=== PATIENT | male | born 1990 | race Caucasian/White ===

== ENCOUNTER 2020-09-30 17:59 | Emergency (ER) | payer OTHER, SELFPAY ==
[2020-09-30] VITALS (14 sets, daily range): BP systolic 92–167; BP diastolic 54–124; PULSE 112–140; RESP 14–30; TEMP 36.6–36.7; O2SAT 94–97; BMI 45.0
--- NOTE | 2020-09-30 18:07 | XR_ITS ---
WS: [id number] XR chest 1V portable [id number] REASON FOR EXAM: cp FINDINGS: The heart and mediastinum are within normal limits. No active pulmonary parenchymal or pleural disease is identified. The bony thorax is intact. XR/XR chest 1V portable [id number] IMPRESSION: No acute chest abnormality.
--- NOTE | 2020-09-30 18:07 | ECG_ITS ---
[facility] Test Date: 2020-09-30 Pat Name: Gerhard Fleming Department: Room: Gender: Male Online Program Coordinator: : 1990 Requested By: Yong Cheema Order Number: [id number] Latif MD: Kristie Spangler M.D. Measurements Intervals [place] Rate: 142 P: 46 MI: 142 QRS: 48 QRSD: 104 T: 31 QT: 293 QTc: 451 Interpretive Statements SINUS TACHYCARDIA, POSSIBLE ATRIAL FLUTTER INFERIOR MYOCARDIAL INFARCTION , PROBABLY OLD [40+ ms Q WAVE AND/OR ST/T ABNORMALITY IN II/aVF] No previous ECG available for comparison Electronically Signed On 10-01-2020 23:47:42 CRIME PREVENTION WORKER by Kristie Spangler M.D. [id number]
--- NOTE | 2020-09-30 18:07 | CTR_ITS ---
PROCEDURE INFORMATION: Exam: CT Angiography Chest With Contrast Exam date and time: 09/30/2020 6:15 PM Age: 30 years old Clinical indication: Shortness of breath; Patient HX: C/O lle pain, chest pressure and SOB; Additional info: Cp SOB TECHNIQUE: Imaging protocol: Computed tomographic angiography of the chest with intravenous contrast. 3D rendering (Not supervised by radiologist): MIP and/or 3D reconstructed images were created by the technologist. Radiation optimization: All CT scans at this facility use at least one of these dose optimization techniques: automated exposure control; mA and/or kV adjustment per patient size (includes targeted exams where dose is matched to clinical indication); or iterative reconstruction. Contrast material: OMNI 350; Contrast volume: 81 ml; Contrast route: INTRAVENOUS (IV); COMPARISON: CR (CHEST, ) 09/30/2020 6:11 PM RADIATION DOSE METRICS: Total DLP (mGy-cm): 627.44 FINDINGS: Pulmonary arteries: Multiple pulmonary artery filling defects within the bilateral upper, lower, and right middle lobes. No saddle embolus. Aorta: Unremarkable. No aortic aneurysm. No aortic dissection. Lungs: Clear. No consolidation. Pleural space: Unremarkable. No pneumothorax. No pleural effusion. Heart: 2.9 cm right pericardial cyst. No evidence for right heart strain. Lymph nodes: Unremarkable. No enlarged lymph nodes. Bones/joints: Unremarkable. No acute fracture. Soft tissues: Unremarkable. CT/CT angio chest PE protcl [id number] IMPRESSION: Extensive bilateral pulmonary emboli. Radiation Dose CTDIVOL = (mGy): DLP = 627.44 (mGy-cm)
--- NOTE | 2020-09-30 18:09 | USR_ITS ---
PROCEDURE INFORMATION: Exam: US Duplex Left Lower Extremity Veins, Limited Exam date and time: 09/30/2020 6:33 PM Age: 30 years old Clinical indication: Pain; Other: CT doc pe and tenderness of left calf; Leg, lower; Patient HX: PT states family has clotting disorder. ; Additional info: Swelling pain TECHNIQUE: Imaging protocol: Real-time Duplex ultrasound of the Left Lower Extremity with 2-D woody scale, color Doppler flow and spectral waveform analysis with image documentation. Limited exam focused on the left lower extremity veins. COMPARISON: No relevant prior studies available. FINDINGS: Left deep veins: The common femoral, femoral, proximal profunda femoral and popliteal veins are patent without thrombus. The antegrade blood flow is diffusely decreased with decreased phasicity. Normal compressibility and/or augmentation response. Left superficial veins: Unremarkable. Saphenofemoral junction is patent without thrombus. Soft tissues: Unremarkable. US/[place] [id number] IMPRESSION: 1. No deep vein thrombosis in the left lower extremity. 2. Decreased venous flow in the left lower extremity with decreased phasicity raises the possibility of thrombus in the IVC or pelvic veins, which are not included on this study.
[2020-09-30] MEDS: sodium chloride 0.9% 1,000 ML 999 ML IV (18:24)
[2020-09-30] MEDS: metoprolol tartrate 1 mg/1 mL SDV 5 mL 5 MG IV ×2 (18:24→21:41)
[2020-09-30 18:27] LABS: ABG PCO2 32.8 mmHg (35-45); ABG PH Result 7.45 (7.35-7.45); Arterial Blood Gas Hematocrit 55.2 % (42-52); Blood Gas Allen Test Pos; Blood Gas Sample Type Arterial; PO2 ABG 54.1 mmHg (80.0-100.0)
[2020-09-30 18:28] LABS: Blood Gas Operator Identificat ED; Blood Gas Sample Site Radial, right; Oxygen Device ROOM AIR
--- NOTE | 2020-09-30 18:31 | ED_ITS ---
HPI - Chest Pain General: Chief Complaint: Chest Pain Stated Complaint: CHEST PAIN Time Seen by Provider: 09/30/20 18:07 History of Present Illness: HPI narrative: 30-year-old obese male presents with shortness of breath and chest tightness. He states that this started while he was walking into work. He had not been walking a great distance. He had felt relatively well recently, other than left leg pain and swelling which she had had for quite some time. He was going to make an appointment with the MD tomorrow, to have his leg looked at. He states that his dad had a DVT once, and told him it seemed kind of like the same thing. He complains of no cough, no fever. He is not had this type of pain before. MD complaint: chest pain Pertinent past history: other Onset (ago): minute(s) Timing of current episode: constant Prior episodes: No Onset: during exertion Pain location: substernal, left chest and right chest Pain radiation: none Severity: moderate Quality: tightness Relieving factors: nothing Exacerbating factors: nothing Associated symptoms: Reports diaphoresis, dyspnea, leg edema and palpitations; Deny fever(s) or vomiting Review of Systems Const: Reports: diaphoresis; Denies: fever(s) Eyes: Denies: change in vision or blurry vision ENMT: Denies: odynophagia, swelling of lips/tongue or sinus pain Card: Reports: chest pain, palpitations, edema and swelling of feet/ankles; Denies: irregular heart rhythm, dyspnea on exertion or orthopnea Resp: Reports: dyspnea GI: Denies: vomiting : Denies: difficulty urinating or hematuria Musc: Denies: neck pain, back pain, joint redness or joint warmth Skin/Breast: Denies: rash or erythema Neuro: Reports: dizziness; Denies: headache(s) or vertigo Psych: Denies: anxiety Physical Exam Const: GENERAL APPEARANCE: in distress and ill appearing O RIENTATION/CONSCIOUSNESS: Yes oriented to person, Yes oriented to place and Yes oriented to time HENMT: COMMON NORMALS: normocephalic, external ears normal and Normal external nose present HEAD & SCALP: normocephalic FACE & SINUS: normal facial exam NOSE: Normal external nose present and No nasal discharge present EXTERNAL EAR: Yes external ears normal Eye: COMMON NORMALS: Equal, round and reactive pupils present, EOMs intact bilaterally and conjunctivae normal EYELID: eyelids normal CONJUNCTIVA: Yes conjunctivae normal PUPIL: Yes Equal, round and reactive pupils present Neck/C-Spine: GENERAL: No tracheal deviation Chest: COMMONS NORMALS: normal inspection of the chest CHEST: No tenderness Resp: COMMON NORMALS: clear to auscultation bilaterally EFFORT & INSPECTION: Yes tachypneic, Yes respiratory distress, No retractions, No uses accessory muscles and No tracheal deviation AUSCULTATION: clear to auscultation bilaterally, no rhonchi, no wheezes and diminished lung sounds Cardio: COMMON NORMALS: regular rhythm RATE: tachycardic RHYTHM: regular rhythm HEART SOUNDS: no murmurs PERIPHERAL PULSES: radial pulses present GI: INSPECTION: No abdominal distension AUSCULTATION: No Hyperactive bowel sounds present and No Hypoactive bowel sounds present PALPATION: No Guarding due to palpation present (GI) and No Rigid due to palpation PERCUSSION: no dullness to percussion and no tympanic to percussion Neuro: SENSORIUM/ORIENTATION: Yes oriented to person, Yes oriented to place and Yes oriented to time Psych: COMMON NORMALS: mental status grossly normal Skin: COMMON NORMALS: no rashes or lesions noted GENERAL SKIN EXAM: no rashes or lesions noted Course Consultations: Consultation #1: xiao Vital Signs: Vital signs: Vital Signs Temperature 98.1 F 09/30/20 23:18 Pulse Rate 115 H 09/30/20 23:38 Respiratory Rate 15 09/30/20 23:38 Blood Pressure 92/71 09/30/20 23:38 Pulse Oximetry 94 09/30/20 23:38 MDM - Chest Pain MDM Narrative: Medical decision making narrative: 30-year-old male with significant PE bilaterally. He has quite a bit of clot burden. He has been tachycardic in the 120s. He has been hypertensive. His sats have been good on 2 L of nasal cannula oxygen, greater than 94%, and he feels much better. He has been given Lovenox injection. His D-dimer is quite high. His troponin at 2 hours jumped significantly indicating right heart strain from his PE. Because of this, the question is whether this patient may need interventional treatment, such as percutaneous thrombectomy done by interventional radiology. We have none of those resources available at this facility. We have called multiple other facilities in the state during this pandemic. We have finally found a bed at [facility] in [place] for this patient. Because of the long mileage transfer, we have chosen to fly the patient by air ambulance. His hypertension is being treated. Lab Data: Labs: Lab Results 09/30/20 09/30/20 09/30/20 Range/Units 18:17 18:20 18:20 WBC 11.6 H (4.0-10.0) 10^3/ uL RBC 5.99 H (4.1-5.3) 10^6/u L Hgb 18.3 H (11.7-16.6) g/dL Hct 55.2 H (42.0-52.0) % MCV 92.2 (80-94) fL MCH 30.6 (28.0-34.0) pg MCHC 33.2 (30.0-36.0) g/dL RDW 11.9 L (12.1-15.1) % Plt Count 210 (130-400) 10^3/c mm MPV 10.8 H (7.4-10.4) fL Neut % (Auto) 70.3 % Lymph % (Auto) 19.0 % Citrus % (Auto) 7.2 % Eos % (Auto) 2.4 % Baso % (Auto) 0.7 % Neut # (Auto) 8.14 H (1.8-7.7) 10^3/u L Lymph # (Auto) 2.2 (0.8-4.8) 10^3/u L Citrus # (Auto) 0.8 (0.2-0.9) 10^3/u L Eos # (Auto) 0.3 (0.0-0.8) 10^3/u L Baso # (Auto) 0.1 (0.0-0.1) 10^3/u L Nucleated RBC % (a uto) 0 % Nucleated RBCs # 0.0 /100WBC PT 13.50 (12.1-14.9) SECO NDS INR 1.00 (0.8-1.2) D-Dimer 6.93 H (0-0.59) ug/mIFE U Specimen Type Arterial Sample Site Radial, right ABG pH 7.45 (7.35-7.45) ABG pCO2 32.8 L (35-45) mmHg ABG pO2 54.1 L (80.0-100.0) mmH g ABG HCO3 23.0 (22-26) mmol/L ABG Base Excess 0.0 (-2.0-2.0) mmol/ L Eliud Test Pos Hematocrit 55.2 H (42-52) % O2 Delivery Device Room air FiO2 21.0 % Workday Senior Associate ID Ed Sodium (136-145) mmol/L Potassium (3.5-5.1) mmol/L Chloride (98-107) mmol/L Carbon Dioxide (22-29) mmol/L Anion Gap (5-19) BUN (6-20) mg/dL Creatinine (0.7-1.2) mg/dL GFR Calculation (90-130) mL/min Glucose (65-115) mg/dL Calculated Osmolal ity (285-295) mOsm/k g Lactate (0.5-2.2) mmol/L Calcium (8.5-10.5) mg/dL Ferritin (30-400) ng/mL Total Bilirubin (0.15-1.2) mg/dL AST (0-40) U/L ALT (0-41) U/L Alkaline Phosphata se (40-130) IU/L Lactate Dehydrogen ase (135-225) U/L Creatine Kinase (39-308) U/L Troponin T Baselin e (0-15) ng/L Troponin T 120 Min elia (0-15) ng/L Delta Troponin T (0-10) ABS# C-Reactive Protein (0.0-4.9) mg/L NT-Pro-B Natriuret Pep (0-125) pg/mL Total Protein (6.6-8.7) g/dL Albumin (3.5-5.2) g/dL Globulin (1.3-4.6) g/dL Procalcitonin (0-0.5) ng/mL SARS-CoV-2 Ag (Rap id) (Negative) 09/30/20 09/30/20 09/30/20 Range/Units 18:20 18:20 19:12 WBC (4.0-10.0) 10^3/ uL RBC (4.1-5.3) 10^6/u L Hgb (11.7-16.6) g/dL Hct (42.0-52.0) % MCV (80-94) fL MCH (28.0-34.0) pg MCHC (30.0-36.0) g/dL RDW (12.1-15.1) % Plt Count (130-400) 10^3/c mm MPV (7.4-10.4) fL Neut % (Auto) % Lymph % (Auto) % Citrus % (Auto) % Eos % (Auto) % Baso % (Auto) % Neut # (Auto) (1.8-7.7) 10^3/u L Lymph # (Auto) (0.8-4.8) 10^3/u L Citrus # (Auto) (0.2-0.9) 10^3/u L Eos # (Auto) (0.0-0.8) 10^3/u L Baso # (Auto) (0.0-0.1) 10^3/u L Nucleated RBC % (a uto) % Nucleated RBCs # /100WBC PT (12.1-14.9) SECO NDS INR (0.8-1.2) D-Dimer (0-0.59) ug/mIFE U Specimen Type Sample Site ABG pH (7.35-7.45) ABG pCO2 (35-45) mmHg ABG pO2 (80.0-100.0) mmH g ABG HCO3 (22-26) mmol/L ABG Base Excess (-2.0-2.0) mmol/ L Eliud Test Hematocrit (42-52) % O2 Delivery Device FiO2 % Workday Senior Associate ID Sodium 139 (136-145) mmol/L Potassium 3.8 (3.5-5.1) mmol/L Chloride 99 (98-107) mmol/L Carbon Dioxide 24 (22-29) mmol/L Anion Gap 19.8 H (5-19) BUN 9 (6-20) mg/dL Creatinine 0.9 (0.7-1.2) mg/dL GFR Calculation 99.8 (90-130) mL/min Glucose 100 (65-115) mg/dL Calculated Osmolal ity 287 (285-295) mOsm/k g Lactate 1.5 (0.5-2.2) mmol/L Calcium 9.7 (8.5-10.5) mg/dL Ferritin 278 (30-400) ng/mL Total Bilirubin 0.6 (0.15-1.2) mg/dL AST 22 (0-40) U/L ALT 46 H (0-41) U/L Alkaline Phosphata se 135 H (40-130) IU/L Lactate Dehydrogen ase 259 H (135-225) U/L Creatine Kinase 81 (39-308) U/L Troponin T Baselin e 27 H (0-15) ng/L Troponin T 120 Min elia (0-15) ng/L Delta Troponin T (0-10) ABS# C-Reactive Protein 16.7 H (0.0-4.9) mg/L NT-Pro-B Natriuret Pep 64 (0-125) pg/mL Total Protein 7.7 (6.6-8.7) g/dL Albumin 4.6 (3.5-5.2) g/dL Globulin 3.1 (1.3-4.6) g/dL Procalcitonin 0.06 (0-0.5) ng/mL SARS-CoV-2 Ag (Rap id) (Negative) 09/30/20 09/30/20 Range/Units 20:13 20:24 WBC (4.0-10.0) 10^3/ uL RBC (4.1-5.3) 10^6/u L Hgb (11.7-16.6) g/dL Hct (42.0-52.0) % MCV (80-94) fL MCH (28.0-34.0) pg MCHC (30.0-36.0) g/dL RDW (12.1-15.1) % Plt Count (130-400) 10^3/c mm MPV (7.4-10.4) fL Neut % (Auto) % Lymph % (Auto) % Citrus % (Auto) % Eos % (Auto) % Baso % (Auto) % Neut # (Auto) (1.8-7.7) 10^3/u L Lymph # (Auto) (0.8-4.8) 10^3/u L Citrus # (Auto) (0.2-0.9) 10^3/u L Eos # (Auto) (0.0-0.8) 10^3/u L Baso # (Auto) (0.0-0.1) 10^3/u L Nucleated RBC % (a uto) % Nucleated RBCs # /100WBC PT (12.1-14.9) SECO NDS INR (0.8-1.2) D-Dimer (0-0.59) ug/mIFE U Specimen Type Sample Site ABG pH (7.35-7.45) ABG pCO2 (35-45) mmHg ABG pO2 (80.0-100.0) mmH g ABG HCO3 (22-26) mmol/L ABG Base Excess (-2.0-2.0) mmol/ L Eliud Test Hematocrit (42-52) % O2 Delivery Device FiO2 % Workday Senior Associate ID Sodium (136-145) mmol/L Potassium (3.5-5.1) mmol/L Chloride (98-107) mmol/L Carbon Dioxide (22-29) mmol/L Anion Gap (5-19) BUN (6-20) mg/dL Creatinine (0.7-1.2) mg/dL GFR Calculation (90-130) mL/min Glucose (65-115) mg/dL Calculated Osmolal ity (285-295) mOsm/k g Lactate (0.5-2.2) mmol/L Calcium (8.5-10.5) mg/dL Ferritin (30-400) ng/mL Total Bilirubin (0.15-1.2) mg/dL AST (0-40) U/L ALT (0-41) U/L Alkaline Phosphata se (40-130) IU/L Lactate Dehydrogen ase (135-225) U/L Creatine Kinase (39-308) U/L Troponin T Baselin e (0-15) ng/L Troponin T 120 Min elia 85.73 H (0-15) ng/L Delta Troponin T 58.73 H* (0-10) ABS# C-Reactive Protein (0.0-4.9) mg/L NT-Pro-B Natriuret Pep (0-125) pg/mL Total Protein (6.6-8.7) g/dL Albumin (3.5-5.2) g/dL Globulin (1.3-4.6) g/dL Procalcitonin (0-0.5) ng/mL SARS-CoV-2 Ag (Rap id) Negative (Negative) Discharge Plan Discharge Patient Disposition: Xfer Other Clinical Impression: Pulmonary air embolism Qualifiers: Encounter type: initial encounter Qualified Code(s): T79.0XXA - Air embolism (traumatic), initial encounter Condition: Stable Discharge Date/Time: 09/30/20 23:57 Coding Level of Care Code ED Training And Development Officer for Danilo Chicas Exam Comprehensive
[2020-09-30] MEDS: iohexol 350 mg/mL 100 mL Btl IV (18:37)
--- NOTE | 2020-09-30 18:37 | PC.NURSE ---
Patient back from CT
[2020-09-30 18:44] LABS: Basophils # 0.1 10^3/uL (0.0-0.1); Basophils % 0.7 %; Eosinophils # 0.3 10^3/uL (0.0-0.8); Eosinophils % 2.4 %; Hematocrit 55.2 % (42.0-52.0); Hemoglobin 18.3 g/dL (11.7-16.6); Lymphocytes # 2.2 10^3/uL (0.8-4.8); Mean Corpuscular HGB Conc 33.2 g/dL (30.0-36.0); Mean Corpuscular Hemoglobin 30.6 pg (28.0-34.0); Mean Corpuscular Volume 92.2 fL (80-94); Mean Platelet Volume 10.8 fL (7.4-10.4); Monocytes # 0.8 10^3/uL (0.2-0.9); Monocytes % 7.2 %; Neutrophils # 8.14 10^3/uL (1.8-7.7); Neutrophils % 70.3 %; Nucleated Red Blood Cells % 0 %; Platelet Count 210 10^3/cmm (130-400); Red Blood Count 5.99 10^6/uL (4.1-5.3); Red Cell Distribution Width 11.9 % (12.1-15.1); White Blood Count 11.6 10^3/uL (4.0-10.0)
[2020-09-30 19:09] LABS: Troponin(5th) Baseline 27 ng/L (0-15)
[2020-09-30 19:17] LABS: NT Pro B Type Natriuretic Pept 64 pg/mL (0-125); Procalcitonin 0.06 ng/mL (0-0.5)
[2020-09-30 19:28] LABS: Alanine Aminotransferase 46 U/L (0-41); Albumin Level 4.6 g/dL (3.5-5.2); Alkaline Phosphatase 135 IU/L (40-130); Anion Gap 19.8 (5-19); Aspartate Amino Transferase 22 U/L (0-40); Blood Urea Nitrogen 9 mg/dL (6-20); C Reactive Protein 16.7 mg/L (0.0-4.9); Calcium 9.7 mg/dL (8.5-10.5); Carbon Dioxide 24 mmol/L (22-29); Chloride 99 mmol/L (98-107); Creatine Phosphokinase 81 U/L (39-308); Ferritin 278 ng/mL (30-400); Globulin 3.1 g/dL (1.3-4.6); Glomerular Filtration Rate 99.8 mL/min (90-130); Glucose 100 mg/dL (65-115); Lactate Dehydrogenase 259 U/L (135-225); Osmolality Calculated 287 mOsm/kg (285-295); Potassium 3.8 mmol/L (3.5-5.1); Sodium 139 mmol/L (136-145); Total Bilirubin 0.6 mg/dL (0.15-1.2); Total Protein 7.7 g/dL (6.6-8.7)
[2020-09-30 19:33] LABS: D Dimer 6.93 ug/mIFEU (0-0.59)
[2020-09-30 19:36] LABS: Lactate (Lactic Acid level) 1.5 mmol/L (0.5-2.2)
--- NOTE | 2020-09-30 20:07 | ECG_ITS ---
[facility] Test Date: 2020-09-30 Pat Name: Gerhard Fleming Department: Room: Gender: Male Yarn Spinner: : 1990 Requested By: Yong Cheema Order Number: [id number] Bhavya MD: Kristie Spangler M.D. Measurements Intervals [place] Rate: 119 P: 37 ID: [id number] QRS: 40 QRSD: 100 T: 25 QT: 319 QTc: 449 Interpretive Statements SINUS TACHYCARDIA POSSIBLE ANTERIOR MYOCARDIAL INFARCTION [30 ms Q WAVE IN V3/V4, OR R < 0.2 mV IN V4], PROBABLY OLD Compared to ECG 09/30/2020 18:06:08 No significant changes Electronically Signed On 10-01-2020 18:55:38 LOOPING INSPECTOR by Kristie Spangler M.D. [id number] f
[2020-09-30 20:48] LABS: Troponin 5 2HR 85.73 ng/L (0-15)
[2020-09-30 20:51] LABS: Troponin 5 2HR Delta 58.73 ABS# (0-10)
[2020-09-30 20:51] LABS: SARS Covid-2 Antigen Negative (Negative)
[2020-09-30] MEDS: nitroglycerin 1 gm/inch oint Pkt 1.5 INCH TOPICAL (21:42)
[2020-09-30] MEDS: enoxaparin 120 mg/0.8 mL Syringe SUBCUT (21:49)
[2020-09-30] MEDS: enalaprilat 1.25 mg/mL Inj IVP (23:25)
[2020-09-30] MEDS: amlodipine 10 mg Tablet PO (23:25)
[2020-09-30] MEDS: labetalol 5 mg/mL SDV 20mL 20 MG IVP (23:29)
--- NOTE | 2020-09-30 23:37 | PC.NURSE ---
1.5 inch nitro removed from right leg prior to [facility]9 leaving with patient; BP noted to be 92/71. [facility] crew here and report given; care turned over at this time.
== END 2020-09-30 23:57 | disposition other institution (70) ==
PROVIDERS: Emergency Provider Emergency Medicine
DX: T79.0XXA Air embolism (traumatic), initial encounter (principal); X58.XXXA Exposure to other specified factors, initial encounter
CPT/HCPCS: 12345; 36600; 71045; 71275; 80053; 82550; 82728; 82803; 83605; 83615; 83880; 84145; 84484; 85025; 85378; 85610; 86140; 87426; 93005; 93971; 96361; 96372; 96374; 96375; 96376; 99283; 99285; J1650; J3490; J7030; Q9967

== ENCOUNTER 2021-01-30 08:28 | Inpatient (IN) | payer OTHER, SELFPAY ==
[2021-01-30] VITALS (26 sets, daily range): BP systolic 111–181; BP diastolic 82–127; PULSE 70–134; RESP 12–110; TEMP 36.1–37.1; O2SAT 91–100; BMI 43.7
--- NOTE | 2021-01-30 | SCC_ITS ---
Procedure Done: Closed reduction percutaneous pinning 89.1 seconds of fluoroscopic guidance, for a cumulative dose of 38.12 mGy, was provided to Dr. Juarez by the radiology department. C-arm images of the LEFT hip were saved for the patient's permanent record. [facility]
--- NOTE | 2021-01-30 08:35 | XR_ITS ---
NOTE: Report was unsigned for reason: Order was edited. Original Signature date and time was: 01/30/21 @ 0932 WS: [id number] Left rib detail, 3 views, 01/30/2021 Clinical Data: fall pain Comparison: None. Findings: No left pneumothorax is seen. The ribs are intact. No rib fractures seen. No subcutaneous emphysema is present. The left scapula and clavicle appear intact. [facility] 3[facility] w CXR1V [id number] Impression: Negative left rib detail.
--- NOTE | 2021-01-30 08:35 | XR_ITS ---
WS: [id number] Left hip, 2 views, 01/30/2021 Clinical Data: fall/pain Comparison: None. Findings: There is a combination fracture of the left femoral neck and intertrochanteric region. The femoral he ad remains within the acetabulum. The adjacent left pelvis is unremarkable. XR/XR hip LT 2-3V wo/w pel* [id number] Impression: Fracture of the left femoral neck and intertrochanteric region.
--- NOTE | 2021-01-30 08:37 | ED_ITS ---
HPI - Fall General: Chief Complaint: Extremity Injury, Lower Stated Complaint: SLIPPED FALL, L HIP PAIN Time Seen by Provider: 01/30/21 08:29 History of Present Illness: HPI Narrative: 30-year-old male arrives he ER via EMS with complaint of left hip pain and left lower rib pain. He slipped and fell on some tile landing on his left side. He did not hit his head there was no loss of consciousness. Patient has a history of DVTs and is currently taking Eliquis. He denies any other injuries. He was given fentanyl in route with moderate relief of pain however was difficult to transfer the patient due to complaint of pain particularly in the left hip. Denies any other injuries or recent illnesses. complaint: fall Onset (ago): minute(s) Fall from: standing Prolonged down time: no Symptoms prior to fall: none Context: tripped/slipped Location of injury: chest (Left lower ribs) and pelvis (Left hip) Severity: severe Quality: sharp Associated symptoms-after fall: Reports chest pain (Chest wall pain) and difficulty walking; Denies abdominal pain, confusion, headache(s), hematuria, lightheadedness, neck pain, numbness, short of breath, vertigo or weakness Review of Systems Const: Denies: fever(s), chills, body aches, change in appetite, fatigue or malaise ENMT: Denies: throat pain, ear or mastoid pain, nasal discharge or nasal congestion Card: Reports: chest pain (Chest wall pain); Denies: lightheadedness Resp: Denies: dyspnea, productive cough or non-productive cough GI: Denies: abdominal pain : Denies: hematuria Musc: Denies: neck pain Skin/Breast: Denies: rash or pruritus Neuro: Reports: difficulty walking; Denies: headache(s), vertigo or confusion PFS ED PFSH: Medical History (Updated 02/02/21 @ 07:32 by Yovani Awad DO) Left leg DVT Obesity Pulmonary embolism Family History (Updated 01/30/21 @ 10:58 by Carlos Ivan MD) Other Clotting disorder Social History (Updated 01/30/21 @ 10:59 by Carlos Ivan MD) Smoking and tobacco status: never smoked Alcohol intake: current Alcohol intake frequency: few times a week Physical Exam Const: COMMON NORMALS: no acute distress GENERAL APPEARANCE: cooperative and comfortable ORIENTATION/CONSCIOUSNESS: Yes awake, Yes oriented to person, Yes oriented to place and Yes oriented to time HENMT: COMMON NORMALS: normocephalic, atraumatic and hearing grossly normal bilaterally HEAD & SCALP: normocephalic and atraumatic Neck/C-Spine: COMMON NORMALS: no JVD Resp: COMMON NORMALS: normal respiratory effort, No retractions, No use of accessory muscles and clear to auscultation bilaterally AUSCULTATION: clear to auscultation bilaterally Cardio: COMMON NORMALS: no JVD, regular rate, regular rhythm and No murmurs present (Cardio) RATE: regular rate RHYTHM: regular rhythm GI: COMMON NORMALS: Soft to palpation and No hepatosplenomegaly present AUSCULTATION: Yes normoactive bowel sounds PALPATION: Yes Soft to palpation, No Tenderness to palpation present (GI), No Guarding due to palpation present (GI) and Yes No hepatosplenomegaly present Extremity: COMMON NORMALS: capillary refill normal, no clubbing, cyanosis or edema, no calf tenderness and no pedal edema Neuro: SENSORIUM/ORIENTATION: Yes oriented to person, Yes oriented to place and Yes oriented to time Skin: COMMON NORMALS: no rashes or lesions noted GENERAL SKIN EXAM: no rashes or lesions noted Course Vital Signs: Vital signs: Vital Signs Temperature 97.8 F 02/01/21 19:20 Pulse Rate 103 H 02/01/21 19:20 Respiratory Rate 20 H 02/01/21 19:20 Blood Pressure 140/88 02/01/21 19:20 Pulse Oximetry 94 02/01/21 19:20 MDM - Fall MDM Narrative: Medical decision making narrative: Mild shortening of the left hip. X-ray shows a subcapital mildly displaced femoral neck fracture. We will go ahead and admit the patient to Ortho. He is on Eliquis for DVTs not taken for the last 2 days. Also will consult hospitalist. Concerning that the patient fell from standing level and resulted in a hip fracture. Lab Data: Labs: Lab Results 01/30/21 01/30/21 01/30/21 Range/Units 09:40 09:40 09:40 WBC 11.3 H (4.0-10.0) 10^3/ uL RBC 5.39 H (4.1-5.3) 10^6/u L Hgb 16.6 (11.7-16.6) g/dL Hct 50.0 (42.0-52.0) % MCV 92.8 (80-94) fL MCH 30.8 (28.0-34.0) pg MCHC 33.2 (30.0-36.0) g/dL RDW 12.2 (12.1-15.1) % Plt Count 237 (130-400) 10^3/c mm MPV 10.4 (7.4-10.4) fL Neut % (Auto) 86.3 % Lymph % (Auto) 7.4 % [place] % (Auto) 4.8 % Eos % (Auto) 0.4 % Baso % (Auto) 0.5 % Neut # (Auto) 9.73 H (1.8-7.7) 10^3/u L Lymph # (Auto) 0.8 (0.8-4.8) 10^3/u L [place] # (Auto) 0.5 (0.2-0.9) 10^3/u L Eos # (Auto) 0.0 (0.0-0.8) 10^3/u L Baso # (Auto) 0.1 (0.0-0.1) 10^3/u L Nucleated RBC % (a uto) 0 % Nucleated RBCs # 0.0 /100WBC PT 13.60 (12.1-14.9) SECO NDS INR 1.01 (0.8-1.2) APTT 23.3 L (23.9-36.7) SECO NDS Sodium 138 (136-145) mmol/L Potassium 3.6 (3.5-5.1) mmol/L Chloride 101 (98-107) mmol/L Carbon Dioxide 26 (22-29) mmol/L Anion Gap 14.6 (5-19) BUN 6 (6-20) mg/dL Creatinine 0.8 (0.7-1.2) mg/dL GFR Calculation 114.3 (90-130) mL/min Glucose 114 (65-115) mg/dL Calculated Osmolal ity 284 L (285-295) mOsm/k g Calcium 8.7 (8.5-10.5) mg/dL Total Bilirubin 0.5 (0.15-1.2) mg/dL AST 26 (0-40) U/L ALT 38 (0-41) U/L Alkaline Phosphata se 117 (40-130) IU/L Total Protein 7.2 (6.6-8.7) g/dL Albumin 4.0 (3.5-5.2) g/dL Globulin 3.2 (1.3-4.6) g/dL TSH (0.27-4.20) uIU/ mL Urine Color (Yellow) Urine Appearance (CLEAR) Urine pH (5-7) Ur Specific Gravit y (1.005-1.030) Urine Protein (Negative) Urine Glucose (UA) (Normal) Urine Ketones (Negative) Urine Blood (Negative) Urine Nitrate (Negative) Urine Bilirubin (Negative) Urine Urobilinogen (Negative) mg/dL Ur Leukocyte Sulma ase (Negative) Urine RBC (0-2) /hpf Urine WBC (0-5) /hpf Ur Squamous Epith Cells (0-5) /hpf Amorphous Sediment Urine Bacteria (NONE) /hpf Urine Mucus /hpf 01/30/21 01/30/21 Range/Units 09:40 09:45 WBC (4.0-10.0) 10^3/ uL RBC (4.1-5.3) 10^6/u L Hgb (11.7-16.6) g/dL Hct (42.0-52.0) % MCV (80-94) fL MCH (28.0-34.0) pg MCHC (30.0-36.0) g/dL RDW (12.1-15.1) % Plt Count (130-400) 10^3/c mm MPV (7.4-10.4) fL Neut % (Auto) % Lymph % (Auto) % [place] % (Auto) % Eos % (Auto) % Baso % (Auto) % Neut # (Auto) (1.8-7.7) 10^3/u L Lymph # (Auto) (0.8-4.8) 10^3/u L [place] # (Auto) (0.2-0.9) 10^3/u L Eos # (Auto) (0.0-0.8) 10^3/u L Baso # (Auto) (0.0-0.1) 10^3/u L Nucleated RBC % (a uto) % Nucleated RBCs # /100WBC PT (12.1-14.9) SECO NDS INR (0.8-1.2) APTT (23.9-36.7) SECO NDS Sodium (136-145) mmol/L Potassium (3.5-5.1) mmol/L Chloride (98-107) mmol/L Carbon Dioxide (22-29) mmol/L Anion Gap (5-19) BUN (6-20) mg/dL Creatinine (0.7-1.2) mg/dL GFR Calculation (90-130) mL/min Glucose (65-115) mg/dL Calculated Osmolal ity (285-295) mOsm/k g Calcium (8.5-10.5) mg/dL Total Bilirubin (0.15-1.2) mg/dL AST (0-40) U/L ALT (0-41) U/L Alkaline Phosphata se (40-130) IU/L Total Protein (6.6-8.7) g/dL Albumin (3.5-5.2) g/dL Globulin (1.3-4.6) g/dL TSH 1.70 (0.27-4.20) uIU/ mL Urine Color Yellow (Yellow) Urine Appearance Sl hazy (CLEAR) Urine pH 5 (5-7) Ur Specific Gravit y 1.030 (1.005-1.030) Urine Protein 1+ H (Negative) Urine Glucose (UA) Norm (Normal) Urine Ketones 1+ H (Negative) Urine Blood Neg (Negative) Urine Nitrate Negative (Negative) Urine Bilirubin Neg (Negative) Urine Urobilinogen 1 H (Negative) mg/dL Ur Leukocyte Sulma ase Negative (Negative) Urine RBC 0-4 H (0-2) /hpf Urine WBC 0-4 H (0-5) /hpf Ur Squamous Epith Cells 5-10 H (0-5) /hpf Amorphous Sediment Not Reportable Urine Bacteria Trace (NONE) /hpf Urine Mucus 2+ /hpf Discharge Plan Discharge Patient Disposition: Admitted As Inpatient Admit Provider: Carson Juarez Clinical Impression: Femoral neck fracture, Obesity, Personal history of deep vein thrombosis Condition: Stable Discharge Diet: Advance as tolerated Discharge Activity: Limit activity as instructed Coding Level of Care Code ED Blood Bank Business Manager for Chg Fwd Exam Comprehensive
--- NOTE | 2021-01-30 09:15 | PC.NURSE ---
Patient left room immediately after triage assessment and primary nurse assessment to go to X-ray. Patient still in X-ray at this time. Will obtain blood and urine specimen as soon as patient returns to the room.
[2021-01-30 09:53] LABS: Basophils # 0.1 10^3/uL (0.0-0.1); Basophils % 0.5 %; Eosinophils % 0.4 %; Hemoglobin 16.6 g/dL (11.7-16.6); Lymphocytes # 0.8 10^3/uL (0.8-4.8); Lymphocytes % 7.4 %; Mean Corpuscular HGB Conc 33.2 g/dL (30.0-36.0); Mean Corpuscular Hemoglobin 30.8 pg (28.0-34.0); Mean Corpuscular Volume 92.8 fL (80-94); Mean Platelet Volume 10.4 fL (7.4-10.4); Monocytes # 0.5 10^3/uL (0.2-0.9); Monocytes % 4.8 %; Neutrophils # 9.73 10^3/uL (1.8-7.7); Neutrophils % 86.3 %; Nucleated Red Blood Cells % 0 %; Platelet Count 237 10^3/cmm (130-400); Red Blood Count 5.39 10^6/uL (4.1-5.3); Red Cell Distribution Width 12.2 % (12.1-15.1); White Blood Count 11.3 10^3/uL (4.0-10.0)
[2021-01-30 10:05] LABS: Add Urine Microscopic? YES; Bilirubin Urine Neg (Negative); Blood Urine Neg (Negative); Glucose Urine UA Norm (Normal); Ketones Urine 1+ (Negative); Leukocyte Esterase Urine Negative (Negative); Nitrate Urine Negative (Negative); Protein Urine 1+ (Negative); Urine Appearance SL Hazy (CLEAR); Urine Color Yellow (Yellow); Urobilinogen Urine 1 mg/dL (Negative); pH Urine 5 (5-7)
--- NOTE | 2021-01-30 10:05 | ECG_ITS ---
[facility] Test Date: 2021-01-30 Pat Name: Gerhard Fleming Department: Room: 258 Gender: Male Strap Sewer: : 1990 Requested By: Yovani Ramos Order Number: [id number] Bhavya MD: Kristie Spangler M.D. Measurements Intervals [place] Rate: 104 P: 51 WI: 151 QRS: 20 QRSD: 102 T: 36 QT: 320 QTc: 423 Interpretive Statements SINUS TACHYCARDIA NONSPECIFIC ST & T-WAVE ABNORMALITY Compared to ECG 09/30/2020 20:15:56 T-wave abnormality now present Myocardial infarct finding no longer present Electronically Signed On 01-30-2021 18:55:35 DEPARTMENT ADMINISTRATOR by Kristie Spangler M.D. [id number]
[2021-01-30 10:11] LABS: Add Urine Culture? No; Bacteria Urine TRACE /hpf; Mucus Urine 2+ /hpf; RBC Urine 0-4 /hpf (0-2); WBC Urine 0-4 /hpf (0-5)
[2021-01-30] MEDS: morphine 4 mg/mL SDV 1 mL 6 MG IVP (10:11)
[2021-01-30] MEDS: ondansetron 2 mg/ML SDV 2 mL 4 MG IVP (10:11)
[2021-01-30 10:16] LABS: INR 1.01 (0.8-1.2); Partial Thromboplastin Time 23.3 SECONDS (23.9-36.7)
[2021-01-30 10:22] LABS: Alanine Aminotransferase 38 U/L (0-41); Alkaline Phosphatase 117 IU/L (40-130); Anion Gap 14.6 (5-19); Aspartate Amino Transferase 26 U/L (0-40); Blood Urea Nitrogen 6 mg/dL (6-20); Calcium 8.7 mg/dL (8.5-10.5); Carbon Dioxide 26 mmol/L (22-29); Chloride 101 mmol/L (98-107); Globulin 3.2 g/dL (1.3-4.6); Glomerular Filtration Rate 114.3 mL/min (90-130); Glucose 114 mg/dL (65-115); Osmolality Calculated 284 mOsm/kg (285-295); Potassium 3.6 mmol/L (3.5-5.1); Sodium 138 mmol/L (136-145); Total Bilirubin 0.5 mg/dL (0.15-1.2); Total Protein 7.2 g/dL (6.6-8.7)
--- NOTE | 2021-01-30 10:32 | XR_ITS ---
WS: [id number] Portable AP supine chest, 01/30/2021 Clinical Data: fall Comparison: Portable chest, 09/30/2020. Findings: No nodules, masses or effusions are seen. The heart is normal. The pulmonary vascularity is not increased. No pneumonia or pneumothorax is seen. XR/XR chest 1V portable [id number] Impression: Negative chest.
--- NOTE | 2021-01-30 10:48 | P.CONIM_ITS ---
Providers/Reason For Consult Consulting Physican/Specialty*: Carlos Ivan MD, hospitalist Reason for Consult*: Medical management History of Present Illness History of Present Illness Gerhard Fleming is a 30 year old male who presented to the emergency department after falling while fixing breakfast this morning around 7 or so. He slipped on wet tile and hit his left side. He reports his left ribs and left hip are very painful, the hip more so. He denies any loss of consciousness, head or neck injury. No shortness of breath. No personal history of Covid, exposure to Covid, or vaccination for Covid. He reports his last p.o. solid intake was 8 PM and last liquid intake 2 AM. 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 His last dose of Eliquis was approximately 2 weeks ago. He reports he has been noncompliant as he often forgets his medicine. Review of Systems General: Reports: 10 or more systems reviewed and unremarkable except in HPI and below Const: Denies: fever(s) or chills Eyes: Denies: change in vision ENMT: Denies: throat pain Card: Reports: chest pain (Left side reproducible, secondary to fall) Resp: Denies: dyspnea GI: Denies: abdominal pain : Denies: flank pain Musc: Reports: extremity pain; Denies: neck pain Skin/Breast: Denies: rash Neuro: Denies: headache(s) Psych: Reports: anxiety and depression Endo: Denies: polyuria Marcin/Lymph: Denies: easy bruising All/Imm: Denies: urticaria Meds/Allergies Home Medications and Allergies Home Medications Medication Instructions Recorded Confirmed Last Taken Type No Known Home Medications 09/30/20 01/30/21 Unknown History Allergies Allergy/AdvReac Type Severity Reaction Status Date / Time No Known Allergies Allergy Verified 01/30/21 08:41 PFSH Acute PFSH: Medical History (Updated 01/30/21 @ 11:02 by Carlos Ivan MD) Left leg DVT Obesity Pulmonary embolism Family History (Updated 01/30/21 @ 10:58 by Carlos Ivan MD) Other Clotting disorder Social History (Updated 01/30/21 @ 10:59 by Carlos Ivan MD) Smoking and tobacco status: never smoked Alcohol intake: current Alcohol intake frequency: few times a week Substance/Drug Use: never Supplemental PFSH Information: Denies significant surgical history Vitals/I&O/Wt Last Vital Signs Temp 98.2 F 01/30/21 08:37 Pulse 106 H 01/30/21 10:18 Resp 19 H 01/30/21 10:18 BP 111/82 01/30/21 10:18 Pulse Ox 98 01/30/21 10:18 Weight last 48 hrs Weight 158.757 kg Physical Exam Narrative: EXAM NARRATIVE: General exam is a white male, reporting significant pain HEENT: Pupils equally round. Oropharynx clear. Neck is supple no lymphadenopathy or thyromegaly Cardiovascular regular rate and rhythm without murmur. No S3 or S4 Lungs are clear no wheezing or crackles Abdomen is soft with positive bowel sounds. No obvious organomegaly was deferred Extremities show no cyanosis clubbing or edema. Leg is slightly shortened and externally rotated. Cap refill less than 2 seconds. Skin no rash Neuro no obvious focal deficits Data Other Data: Other data: Rib x-rays on the left no fracture Hip film on the left demonstrates a left intertrochanteric hip fracture EKG demonstrates slight sinus tachycardia, normal axis, no acute changes INR 1.01, PTT 23.3 LFTs normal TSH I have is ordered and is pending Urinalysis 0-4 reds and 0-4 whites A&P Assessment and plan (1) Intertrochanteric fracture of left hip: Dr. Juarez is primary and considering surgery today. No direct contraindications to surgery. Status: Acute (2) Obesity: Encourage weight loss and appropriate diet TSH will be checked. Status: Acute (3) Depression: Noted on questions on review of system. We will have discharge planning provide outpatient [facility] follow-up and numbers Status: Acute (4) Pulmonary embolism: History of pulmonary embolism and family history of clotting disorder for which she needs long-term anticoagulation according to the patient. Would resume Eliquis as soon as possible after surgery. Status: Inactive Additional A&P Information Probable sleep apnea. Consider outpatient evaluation Full code Resume Eliquis 5 mg twice daily as soon as possible following surgery. This w ill suffice for DVT prophylaxis. Consult Attestations Medical Necessity Statement: Will need greater than 2 midnight stay for evaluation and treatment of hip fracture and repair. Time Spent in Patient Care: Greater than 35 minutes Coding Level of Care Code Acute Loop Sewer for Chg Fwd Diagnoses Intertrochanteric fracture of left hip S72.142A Obesity E66.9 Depression F32.9 Pulmonary embolism I26.99
[2021-01-30] MEDS: acetaminophen 325 mg Tablet 650 MG PO (13:08)
[2021-01-30] MEDS: sodium chloride 0.9% 1,000 ML 75 ML IV (13:11)
--- NOTE | 2021-01-30 14:22 | P.ANESASSM_ITS ---
Pre-Anesthetic Assessment Pre-Anesthetic Assessment: Height/Weight: Height 1.91 m Weight 158.757 kg Temp Pulse Resp BP Pulse Ox 98.8 F 109 H 18 160/100 98 01/30/21 12:13 01/30/21 12:13 01/30/21 12:13 01/30/21 12:13 01/30/21 12:13 Proposed Procedure: Operation Date: 01/30/21 15:40 Proposed Procedures p Trochanteric Femoral Nail(Left) - Carson H Ann, DO Was Beta Sylvain taken within 24 hours: N/A Social: Social History: Alcohol and No tobacco Exam: Pre-Anes Outpt Exam: alert, oriented x 3, clear to auscultation bilaterally and regular rate & rhythm Airway: Submandibular: WNL Cervical ROM: WNL MP: 2 Dentition: Full CV/HEM: CV/HEM: DVT (Eliquis) Metabolic: Metabolic: Morbid obesity Neuropsych: Neuropsych: Depression Anesthetic Plan: ASA status: 3 Other: SAB Risk of > 500 ml blood loss (7ml/kg in children): No Meds/Allergies Current Medications: Current Medications Generic Name Dose Route Start Last Admin Trade Name Freq PRN Reason Stop Dose Admin Acetaminophen 650 mg 01/30/21 12:15 01/30/21 13:08 Acetaminophen 32 5 Mg Tablet PO 650 mg Q6H PRN Administration Mild/Mod Pain Or Temp >/= 101 Sodium Chloride 1,000 mls @ 75 ml s/hr 01/30/21 12:15 01/30/21 13:11 Sodium Chloride 0.9% IV 75 mls/hr .[id number] [place] Administration PFSH Anesthesia PFSH: Medical History (Updated 01/30/21 @ 11:02 by Carlos Ivan MD) Left leg DVT Obesity Pulmonary embolism Family History (Updated 01/30/21 @ 10:58 by Carlos Ivan MD) Other Clotting disorder Social History (Updated 01/30/21 @ 10:59 by Carlos Ivan MD) Smoking and tobacco status: never smoked Alcohol intake: current Alcohol intake frequency: few times a week Substance/Drug Use: never Supplemental PFSH Information: Denies significant surgical history Data Anesthesia CBC & Chem 7: 01/30/21 09:40 01/30/21 09:40 Other Labs: Laboratory Results - last 48 hr 01/30/21 01/30/21 01/30/21 09:40 09:40 09:40 WBC 11.3 H RBC 5.39 H Hgb 16.6 Hct 50.0 MCV 92.8 MCH 30.8 MCHC 33.2 RDW 12.2 Plt Count 237 MPV 10.4 Neut % (Auto) 86.3 Lymph % (Auto) 7.4 [place] % (Auto) 4.8 Eos % (Auto) 0.4 Baso % (Auto) 0.5 Neut # (Auto) 9.73 H Lymph # (Auto) 0.8 [place] # (Auto) 0.5 Eos # (Auto) 0.0 Baso # (Auto) 0.1 Nucleated RBC % (auto) 0 Nucleated RBCs # 0.0 PT 13.60 INR 1.01 APTT 23.3 L Sodium 138 Potassium 3.6 Chloride 101 Carbon Dioxide 26 Anion Gap 14.6 BUN 6 Creatinine 0.8 GFR Calculation 114.3 Glucose 114 Calculated Osmolality 284 L Calcium 8.7 Total Bilirubin 0.5 AST 26 ALT 38 Alkaline Phosphatase 117 Total Protein 7.2 Albumin 4.0 Globulin 3.2 TSH Urine Color Urine Appearance Urine pH Ur Specific [place] Urine Protein Urine Glucose (UA) Urine Ketones Urine Blood Urine Nitrate Urine Bilirubin Urine Urobilinogen Ur Leukocyte Esterase Urine RBC Urine WBC Ur Squamous Epith Cells Amorphous Sediment Urine Bacteria Urine Mucus 01/30/21 01/30/21 09:40 09:45 WBC RBC Hgb Hct MCV MCH MCHC RDW Plt Count MPV Neut % (Auto) Lymph % (Auto) [place] % (Auto) Eos % (Auto) Baso % (Auto) Neut # (Auto) Lymph # (Auto) [place] # (Auto) Eos # (Auto) Baso # (Auto) Nucleated RBC % (auto) Nucleated RBCs # PT INR APTT Sodium Potassium Chloride Carbon Dioxide Anion Gap BUN Creatinine GFR Calculation Glucose Calculated Osmolality Calcium Total Bilirubin AST ALT Alkaline Phosphatase Total Protein Albumin Globulin TSH 1.70 Urine Color Yellow Urine Appearance Sl hazy Urine pH 5 Ur Specific [place] 1.030 Urine Protein 1+ H Urine Glucose (UA) Norm Urine Ketones 1+ H Urine Blood Neg Urine Nitrate Negative Urine Bilirubin Neg Urine Urobilinogen 1 H Ur Leukocyte Esterase Negative Urine RBC 0-4 H Urine WBC 0-4 H Ur Squamous Epith Cells 5-10 H Amorphous Sediment Not Reportable Urine Bacteria Trace Urine Mucus 2+ Cardiac Studies: No Data to Display
--- NOTE | 2021-01-30 14:24 | PM.HP ---
Providers/Chief Complaint Admitting Physician: Carson Juarez DO Chief Complaint: SLIPPED FALL, L HIP PAIN History of Present Illness Gerhard Fleming is a 30 year old male who presented to the emergency department after falling while fixing breakfast this morning around 7 or so. He slipped on wet tile and hit his left side. He reports his left ribs and left hip are very painful, the hip more so. He denies any loss of consciousness, head or neck injury. No shortness of breath. No personal history of Covid, exposure to Covid, or vaccination for Covid. He reports his last p.o. solid intake was 8 PM and last liquid intake 2 AM. 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 His last dose of Eliquis was approximately 2 weeks ago. He reports he has been noncompliant as he often forgets his medicine Review of Systems General: Reports: 10 or more systems reviewed and unremarkable except in HPI and below Const: Denies: fever(s), chills, body aches, change in appetite, fatigue or malaise Eyes: Denies: change in vision ENMT: Denies: throat pain, ear or mastoid pain, nasal discharge or nasal congestion Card: Reports: chest pain (Left side reproducible, secondary to fall); Denies: lightheadedness Resp: Denies: dyspnea, productive cough or non-productive cough GI: Denies: abdominal pain : Denies: flank pain or hematuria Musc: Reports: extremity pain; Denies: neck pain or joint warmth Skin/Breast: Denies: rash or pruritus Neuro: Reports: difficulty walking; Denies: headache(s), vertigo or confusion Psych: Reports: anxiety and depression Endo: Denies: polyuria Marcin/Lymph: Denies: easy bruising All/Imm: Denies: urticaria Medications/Allergies Home Medications Medication Instructions Recorded Confirmed Last Taken Type No Known Home Medications 09/30/20 01/30/21 Unknown History Allergies Allergy/AdvReac Type Severity Reaction Status Date / Time No Known Allergies Allergy Verified 01/30/21 08:41 PFSH Acute PFSH: Medical History (Updated 01/30/21 @ 14:26 by Carson Juarez DO) Left leg DVT Obesity Pulmonary embolism Family History (Updated 01/30/21 @ 10:58 by Carlos Ivan MD) Other Clotting disorder Social History (Updated 01/30/21 @ 10:59 by Carlos Ivan MD) Smoking and tobacco status: never smoked Alcohol intake: current Alcohol intake frequency: few times a week Substance/Drug Use: never Supplemental PFSH Information: Denies significant surgical history Vitals/I&O/Wt Last Vital Signs Temp 98.8 F 01/30/21 12:13 Pulse 109 H 01/30/21 12:13 Resp 18 01/30/21 12:13 BP 160/100 01/30/21 12:13 Pulse Ox 98 01/30/21 12:13 01/29/21 01/30/21 01/30/21 22:59 06:59 14:59 Output Total 500 / 500 Balance -500 / -500 Weight last 48 hrs Weight 350 lb Physical Exam Narrative: EXAM NARRATIVE: CONSTITUTIONAL: The patient is a normal appearing [] in no apparent distress. GENERAL: Patient in no acute distress. CARDIAC: Regular rate and rhythm. CHEST: Normal inspiratory effort, normal respiratory rate. ABDOMEN: Soft and nontender. SKIN: Clear, warm and intact. NEURO?PSYCH: The patient is alert and oriented to person, place and time. Sensorv /SILT Motor StrengthShoulder abduction C5 5/5Wrist extension C6 5/5Elbow extension C7 5/5Hand Telecommunications Equipment Installer C8 5/5Finger abduction T15/5 Radial/ Ulnar/ Median n intact LowerSensory (SILT)Motor StrengthHin flexion L2/3Ant/inner thigh 5/5Hip adduction L2/3 5/5Knee extension L4 Lat thigh, 5/5Toe dorsiflexion L5 5/5Ankle dorsiflexion L5/ I36Jusythw flexion S1 5/5 DTRBleeps 2+Triceps 2+Brachioradialis 2+Patellar 2+Achilles 2+ MUSCULOSKELETAL: [] UPPEREXTREMITIES: The patient had full active ROM in fingers, wrist, elbow, and shoulder. The patient demonstrated ability to fully flex/extend/abduct/adduct fingers, make ok sign, cross 2nd/3rd digits, extend 1st digit fully.. Radial pulse 2+, CR<2 seconds. LOWER EXTREMITIES: Pt has full, active ROM of toes, ankle, knee, and hip. Dorsalis pedis/posterior tibialis pulses 2+, CR<2 seconds. SPINE: Skin warm, dry, intact. Urinary Catheter Management^: [place]um[place]: Cath Placed During This Visit: yes Urinary Catheter Date of Insertion: 01/30/21 Urinary Catheter Time of Insertion: 13:00 Data : 01/30/21 09:40 01/30/21 09:40 A&P Assessment and plan (1) Femoral neck fracture: CRPP left femoral neck Status: Acute Attestations Medical Necessity Statement*: needs ORIF Coding Level of Care Code Acute Director Of Materials for [facility] Fwd Diagnoses Femoral neck fracture S72.009A
--- NOTE | 2021-01-30 14:27 | W.PM.OPSUD ---
Surgery/Procedure H&P Update DATE OF PROCEDURE: January 30, 2021 DATE H&P PERFORMED: 01/30/21 PLANNED PROCEDURE: Operation Date: 01/30/21 15:40 Proposed Procedures p Trochanteric Femoral Nail(Left) - Carson Juarez DO
[2021-01-30] MEDS: HYDROmorphone 1 mg/mL INJ 1 mL 0.5 MG IVP ×3 (14:41→16:50)
--- NOTE | 2021-01-30 15:53 | XR_ITS ---
WS: [id number] Left hip, C-arm fluoroscopy views, 01/30/2021 Clinical Data: OR PICS Comparison: Left hip, 01/30/2021 Findings: The left hip fracture is reduced with the aid of 3 orthopedic pins. XR/XR hip LT 2-3V wo/w pel* [id number] Impression: Internal fixation of left femoral neck fracture.
[2021-01-30] MEDS: HYDROmorphone 1 mg/mL INJ 1 mL 0.25 MG IVP ×5 (16:01→17:00)
--- NOTE | 2021-01-30 16:06 | P.OP_ITS ---
Operative Report Date of procedure: January 30, 2021 Pre-op Diagnosis: left femoral neck fracture Post-op diagnosis: same Procedure Done: Closed reduction percutaneous pinning Surgeon: Carson Juarez Anesthesia: General Estimated blood loss (mL): 5 Condition: stable Disposition: PACU Procedure: Patient was brought to the operative suite after undergoing anesthesia was placed on the [place] table. Traction and rotation were dialed in to reduce the fracture using C-arm guidance. Patient was then prepped and draped in normal sterile fashion. Skin incision made over the greater trochanter and intertrochanteric region. Starting pin was inserted and the most inferior screw was placed as a partially-threaded screw this compressed the fracture. And then another posterior screw was used to compress the fracture and then a fully threaded screws placed anteriorly to lock the fracture in position. AP lateral fluoroscopy ensured the fracture and hardware in prepositions wounds were irrigated and closed with Vicryl and pollo. Sterile dressings were applied patient transferred to the PACU in stable condition
[2021-01-30] MEDS: ketorolac 30 mg/mL INJ IVP ×2 (16:19→20:43)
--- NOTE | 2021-01-30 16:27 | ANE.PACU2 ---
Inpatient post-anesthesia follow up: Airway intact: Yes Vital signs: Temperature 97.6 F Pulse Rate [Monito r] 89 Pulse Rate 117 Respiratory Rate 16 Blood Pressure [Le ft Arm] 159/105 Blood Pressure 158/116 Pulse Oximetry 100 Oxygen Delivery Me thod Simple Mask Oxygen Flow Rate 8 Fraction of Inspir ed Oxygen Hydration adequate: Yes Nausea and vomiting: No Pain level: 5 Mental status: Baseline
[2021-01-30] MEDS: HYDROcodone-acetaminophen 5-325 mg Tablet PO ×2 (18:31→22:50)
[2021-01-30] MEDS: apixaban 5 mg Tablet PO (20:43)
[2021-01-31] VITALS (7 sets, daily range): BP systolic 142–161; BP diastolic 83–91; PULSE 65–97; RESP 17–18; TEMP 36.6–36.8; O2SAT 93–97
--- NOTE | 2021-01-31 05:46 | PC.NURSE ---
In room to remove patient's Ahumada Catheter. Patient states, I would really rather you leave the catheter in until I see how good I am at getting up and down today. Explained to the patient that the doctor really likes to get them out with in 24 hours. Patient states, I understand and maybe be later today but I just feel more comfortable with it after I see how I do with therapy.
[2021-01-31] MEDS: HYDROcodone-acetaminophen 5-325 mg Tablet PO ×4 (06:10→23:46)
[2021-01-31] MEDS: sodium chloride 0.9% 1,000 ML 75 ML IV (06:16)
--- NOTE | 2021-01-31 07:24 | PC.NURSE ---
Report to Kirstin ARRIOLA at this time.
--- NOTE | 2021-01-31 07:43 | PM.PN ---
Subjective Subjective: Interval history: Gerhard reports that he is feeling better today. Pain is under better control. He is worried about many things such as his job, and how he is going to manage when he gets home. Medications: Reviewed: Yes Vitals/I&O/Wt Last Vital Signs Temp 98.2 F 01/31/21 07:41 Pulse 70 01/31/21 07:41 Resp 18 01/31/21 07:41 BP 150/84 01/31/21 07:41 Pulse Ox 93 01/31/21 07:41 01/30/21 01/31/21 01/31/21 22:59 06:59 14:59 Intake Total 290 / 290 1200 / 1490 Output Total 420 / 920 1300 / 2220 Balance -130 / -630 -100 / -730 Weight last 48 hrs Weight 158.757 kg Physical Exam Narrative: EXAM NARRATIVE: General exam is a white male in no distress. Neck is supple no lymphadenopathy or thyromegaly Cardiovascular regular rate and rhythm without murmur. No S3 or S4 Lungs are clear no wheezing or crackles Abdomen is soft with positive bowel sounds. No obvious organomegaly Extremities show no cyanosis clubbing or edema. Distal cap refill intact. Incision site clean and dry. Neurologic: No foot drop Urinary Catheter Management^: Ahumada: Cath Placed During This Visit: yes Reason for Continuing Indwelling Catheter: Perioperative Use in Selected Surgeries Urinary Catheter Date of Insertion: 01/30/21 Urinary Catheter Time of Insertion: 13:00 Data : 01/30/21 09:40 01/30/21 09:40 A&P Assessment and plan (1) Intertrochanteric fracture of left hip: Postoperative day #1 status post closed reduction and pinning of left femoral neck fracture discontinue fluids he has not yet worked with rehabilitation. Initiate today. Status: Acute (2) Obesity: Encourage weight loss and appropriate diet TSH was checked and normal Status: Acute (3) Depression: Noted on questions on review of system. Discharge planning to provide outpatient [facility] follow-up and numbers. [facility] also [facility] and this may be another resource. Status: Acute (4) Pulmonary embolism: History of pulmonary embolism and family history of clotting disorder for which she needs long-term anticoagulation according to the patient. Eliquis has been resumed Status: Inactive Additional A&P Information Probable sleep apnea. Consider outpatient evaluation. This will need to be coordinated through his [facility] physician. Patient indicates transportation has been an issue to him receiving health care. 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
--- NOTE | 2021-01-31 08:17 | PM.PN ---
Subjective Subjective: Interval history: Patient pain much better controlled. At this point patient has not been up with physical therapy like to get him up with physical therapy. Discussed them that he could be discharged today if he wanted to if he is able to tolerate physical therapy his pain control is going the bathroom and is tolerating food. At this point plan is to attempt to discharge him tomorrow unless he feels like he is up to get out here today. Vitals/I&O/Wt Last Vital Signs Temp 98.2 F 01/31/21 07:41 Pulse 70 01/31/21 07:41 Resp 18 01/31/21 07:41 BP 150/84 01/31/21 07:41 Pulse Ox 93 01/31/21 07:41 01/30/21 01/31/21 01/31/21 22:59 06:59 14:59 Intake Total 290 / 290 1200 / 1490 Output Total 420 / 920 1300 / 2220 Balance -130 / -630 -100 / -730 Weight last 48 hrs Weight 350 lb Physical Exam Narrative: EXAM NARRATIVE: Dressing is clean dry and intact sensation is intact patient has got full range of motion of ankles. Urinary Catheter Management^: Ahumada: Cath Placed During This Visit: yes Reason for Continuing Indwelling Catheter: Perioperative Use in Selected Surgeries Urinary Catheter Date of Insertion: 01/30/21 Urinary Catheter Time of Insertion: 13:00 Data : 01/30/21 09:40 01/30/21 09:40 A&P Additional A&P Information Patient is postop day #1 from a left closed reduction percutaneous pinning of a femoral neck fracture. Plan is to get the patient up with PT today and possibly discharge tomorrow he needs to be discharged on Eliquis 5 mg twice daily as well as pain meds. And he will follow-up in the clinic in 2 weeks with me. Attestations Medical Necessity Statement*: Patient needs to be up with physical therapy pain controlled going to the bathroom and tolerating food. Coding Level of Care Code Acute Rubber Roller Grinder Operator for Danilo Chicas
[2021-01-31 08:57] LABS: Basophils % 0.2 %; Eosinophils % 0.2 %; Hemoglobin 16.6 g/dL (11.7-16.6); Lymphocytes # 1.2 10^3/uL (0.8-4.8); Lymphocytes % 9.8 %; Mean Corpuscular HGB Conc 33.9 g/dL (30.0-36.0); Mean Corpuscular Hemoglobin 31.2 pg (28.0-34.0); Mean Corpuscular Volume 92.1 fL (80-94); Mean Platelet Volume 10.3 fL (7.4-10.4); Monocytes # 0.6 10^3/uL (0.2-0.9); Monocytes % 5.2 %; Neutrophils # 10.36 10^3/uL (1.8-7.7); Neutrophils % 84.3 %; Nucleated Red Blood Cells % 0 %; Platelet Count 226 10^3/cmm (130-400); Red Blood Count 5.32 10^6/uL (4.1-5.3); Red Cell Distribution Width 11.9 % (12.1-15.1); White Blood Count 12.3 10^3/uL (4.0-10.0)
[2021-01-31 09:13] LABS: Anion Gap 13.8 (5-19); Blood Urea Nitrogen 8 mg/dL (6-20); Calcium 8.9 mg/dL (8.5-10.5); Carbon Dioxide 25 mmol/L (22-29); Chloride 101 mmol/L (98-107); Glomerular Filtration Rate 133.3 mL/min (90-130); Glucose 173 mg/dL (65-115); Osmolality Calculated 284 mOsm/kg (285-295); Potassium 3.8 mmol/L (3.5-5.1); Sodium 136 mmol/L (136-145)
--- NOTE | 2021-01-31 10:36 | PC.CHAP ---
Pastoral Care Encounter/Spiritual Assessment Type of Contact [] Declined neighborhood planner visit [] Patient/Family/Request visit [] Outpatient visit [] Follow-up visit [] Physician referral [] Code/Alert [x] Routine visit [] Staff referral [] Actively dying [] Patient sleeping [] Family support [] [] Out of room [] Palliative care [] [x] Receiving care in room [] Pre-surgical visit [] Trauma [] Long length of stay [] ICU visit [] Other: Relational/Emotional Strength [x] Patient feels connected with others/family/visitors/staff [] Distress [] Loneliness/isolation [] Abandonment Spirituality of Patient [] Person of [place] [] Attends Rastafari of their [place] [] Believes in Prayer [] Reads Bible or Yarsani materials [] There are Spiritual issues to be addressed Salt Grinder Interventions [] Prayer [] Active listening [] Non-anxious presence [] Spiritual/emotional support [] Crisis/trauma care [] Spiritual counseling [] Bereavement support [] Provided bereavement packet [] Provided Bible/devotional materials [] Provided toy/stuffed animal, coloring book to patient or family member [] Provided Communion [] Anointing/[place] [] Salvation [] Completed spiritual assessment [] Other: Impact on Illness or Injury [] Angry [] Fearful [x] Anxious [] Often cries [] Exhaustion [] Unable to work [] Unable to attend taoist [] Unable to walk/stand [] Unable to read [] Unable to drive [] Unable to eat/drink [] Unable to sleep [] Unable to be with family [] Patient intubated [] Other: Summary Had surgery on hip, ruddy have some rehab and short time for recvery, has some pain, going home soon. Time spent with patient 10 mins
[2021-01-31] MEDS: apixaban 5 mg Tablet PO ×2 (11:45→20:31)
[2021-01-31 18:06] LABS: Coronavirus Test Green County Not Detected
[2021-02-01] VITALS (7 sets, daily range): BP systolic 140–168; BP diastolic 78–99; PULSE 70–105; RESP 18–20; TEMP 36.4–36.7; O2SAT 94–97
[2021-02-01] MEDS: HYDROcodone-acetaminophen 5-325 mg Tablet PO ×2 (06:00→16:41)
--- NOTE | 2021-02-01 07:02 | PM.DCS ---
Discharge Providers Date of Admission: 01/30/21 10:12 Date of Discharge: February 01, 2021 Attending Provider at Admission: Carson Juarez DO Attending Provider at Discharge: Carson Juarez DO Diagnoses at Discharge Discharge Diagnosis (1) Intertrochanteric fracture of left hip: Status: Acute (2) Obesity: Status: Acute (3) Depression: Status: Acute (4) Pulmonary embolism: Status: Inactive Reason for Visit Reason for Visit: SLIPPED FALL, L HIP PAIN Hospital Course Hospital Course Patient was admitted on 01/30/2021. He had a left femoral neck fracture. He was taken to the OR on 01/30/2021. He had close reduction percutaneous screw fixation of the left femoral neck. He tolerated the procedure well was up with physical therapy will be discharged on 02/01/2021. No events occurred. Physical Exam Urinary Catheter Management^: Ahumada: Cath Placed During This Visit: yes, but has since been removed by the nurse Reason for Continuing Indwelling Catheter: Decision to DC Catheter Urinary Catheter Date of Insertion: 01/30/21 Urinary Catheter Time of Insertion: 13:00 Date Urinary Catheter Removed: 01/31/21 Time Urinary Catheter Discontinued: 18:12 Discharge Data Data Completed and Pending: Completed Studies During Hospitalization Category Date Time Status XR chest 1V kvng ble 55489 Routine Exams 01/30/21 10:32 Completed XR hip LT 2-3V wo /w pel* [id number] Rout ine Exams 01/30/21 15:53 Completed XR hip LT 2-3V wo /w pel* [id number] Stat Exams 01/30/21 08:35 Completed XR ribs LT 2V* 71 100 Stat Exams 01/30/21 08:35 Completed Labs from last 24 hours 01/31/21 01/31/21 01/30/21 08:47 08:47 11:32 WBC 12.3 H RBC 5.32 H Hgb 16.6 Hct 49.0 MCV 92.1 MCH 31.2 MCHC 33.9 RDW 11.9 L Plt Count 226 MPV 10.3 Neut % (Auto) 84.3 Lymph % (Auto) 9.8 [place] % (Auto) 5.2 Eos % (Auto) 0.2 Baso % (Auto) 0.2 Neut # (Auto) 10.36 H Lymph # (Auto) 1.2 [place] # (Auto) 0.6 Eos # (Auto) 0.0 Baso # (Auto) 0.0 Nucleated RBC % (a uto) 0 Nucleated RBCs # 0.0 Sodium 136 Potassium 3.8 Chloride 101 Carbon Dioxide 25 Anion Gap 13.8 BUN 8 Creatinine 0.7 GFR Calculation 133.3 H Glucose 173 H Calculated Osmolal ity 284 L Calcium 8.9 Nasal/Oral COVID-1 9 PCR Not detected Vitals: Last Vital Signs Temp 98.1 F 02/01/21 04:00 Pulse 86 02/01/21 04:00 Resp 18 02/01/21 04:00 BP 160/99 02/01/21 04:00 Pulse Ox 96 02/01/21 04:00 Discharge Plan Discharge Patient Disposition: Home Condition: Stable Prescriptions: New hydrocodone-acetaminophen 5-325 mg Tablet 1 - 2 tab PO Q4H PRN (Reason: Breakthrough Pain) Qty: 60 RF: 0 Eliquis 5 mg Tablet 5 mg PO BID@0900,2100 Qty: 60 RF: 0 Discharge Orders: Discharge Order (Routine); Ordered 02/01/21 Ordered By: Carson Juarez Other Ambulatory Orders: DME: [employer] (Order) Location: None Selected Ordered By: Carlos Ivan DME: Walker (Order) Location: None Selected Ordered By: Carlos Ivan Discharge Diet: Advance as tolerated Discharge Activity: Limit activity as instructed Activity Restrictions/Additional Instructions: You are being discharged from the hospital today during which time you have been under the care of Dr. Juarez. You had a left femoral neck fracture. You were treated for this injury with closed reduction percutaneous screw fixation. You may resume you normal diet (including any special diets as directed by your primary doctor) as well as your home medications. You should follow up with you primary doctor if you have any questions regarding medication you took prior to your stay in the hospital. You may take your pain medication as prescribed. After the first few days, take your pain medication as needed. Do not drive or drink alcohol while taking your pain medication. Your injury may increase your risk of developing a blood clot,or DVT, in your arm or leg. This could potentially dislodge and travel to your lungs and become a life threatening condition called apulmonary embolus,or PE. You have been prescribed Eliquis to be taken to prevent this. Frequent movement of the feet will also help prevent this from occurring. If you develop any new or worsening cough, chestpain, bloody sputum or shortness of breath, call 911 or go to the EmergencyRoom. Always keep your surgical incision/dressing clean and dry. If you experience increasing pain at your incision site, redness, swelling, increasing discharge, foul odors, or fevers (greater than 100.4), night sweats or chills you should call the office at the above number. If you feel this is an emergency you should be evaluated in the Emergency Department of a nearby hospital. Orthopedic Patient Instructions Summary: Weight Bearing: Toe-touch weightbearing left lower extremity Activity: As tolerated. Diet: Regular. Splint Care: Keep splint clean and dry. Cover with a plastic bag for bathing. Wound Care: Keep dressing clean and dry. Anticoagulation: Eliquis 5 mg twice daily Pain Medication: Take only as needed. Ice, rest and elevation will be of great benefit. Please plan to follow-up [facility] Dr Juarez in 2 weeks. You will need to call the clinic [phone] to schedule this visit. Thank you far allowing me to participate in your care. Do not hesitate to call the office with any questions or concerns. Discharge Attestations Time Spent in Discharge Care*: less than 30 min Quality Metrics Clinical Quality Measures During this hospital stay, did patient experience: None
--- NOTE | 2021-02-01 07:41 | P.PN_ITS ---
Subjective Subjective: Interval history: Gerhard reports he has quite a bit of pain. Otherwise doing okay. He is not sure if he is going home, or to a skilled facility. Medications: Reviewed: Yes Vitals/I&O/Wt Last Vital Signs Temp 97.6 F 02/01/21 07:29 Pulse 105 H 02/01/21 07:29 Resp 19 H 02/01/21 07:29 BP 168/83 02/01/21 07:29 Pulse Ox 97 02/01/21 07:29 01/31/21 02/01/21 02/01/21 22:59 06:59 14:59 Intake Total 1120 / 1600 Output Total 375 / 375 Balance 745 / 1225 Weight last 48 hrs Weight 158.757 kg Physical Exam Narrative: EXAM NARRATIVE: General exam in some discomfort this morning. Blood pressures are noted to be high since admission. Some of them markedly so. Neck is supple no lymphadenopathy or thyromegaly Cardiovascular regular rate and rhythm without murmur. No S3 or S4 Lungs are clear no wheezing or crackles Abdomen is soft with positive bowel sounds. No obvious organomegaly Extremities show no cyanosis clubbing or edema. Urinary Catheter Management^: Ahumada: Cath Placed During This Visit: yes, but has since been removed by the nurse Reason for Continuing Indwelling Catheter: Decision to DC Catheter Urinary Catheter Date of Insertion: 01/30/21 Urinary Catheter Time of Insertion: 13:00 Date Urinary Catheter Removed: 01/31/21 Time Urinary Catheter Discontinued: 18:12 Data : 01/31/21 08:47 01/31/21 08:47 A&P Assessment and plan (1) Intertrochanteric fracture of left hip: Postoperative day #2 status post closed reduction and pinning of left femoral neck fracture discontinue fluids Doing well. It appears evaluation is still going on to determine if patient is safe for discharge home into his own care as he has no significant support at home. Status: Acute (2) Obesity: Encourage weight loss and appropriate diet TSH was checked and normal Status: Acute (3) Depression: Noted on questions on review of system. Discharge planning to provide outpatient [facility] follow-up and numbers. He is also [facility] and this may be another resource. Status: Acute (4) Pulmonary embolism: History of pulmonary embolism and family history of clotting disorder for which she needs long-term anticoagulation according to the patient. Eliquis has been resumed Status: Inactive Additional A&P Information Hypertension. His blood pressure is still significantly elevated. Sometimes it is markedly so. Initiate lisinopril 10 mg daily. Will need outpatient [facility] with the [facility]. Probable sleep apnea. Consider outpatient evaluation. This will need to be coordinated through his ID physician. Patient indicates transportation has been an issue to him receiving health care. Full code Eliquis will suffice for DVT prophylaxis Attestations Medical Necessity Statement*: As per primary Coding Level of Care Code Acute Section Plotter Operator for Chg Fwd Diagnoses Intertrochanteric fracture of left hip S72.142A Obesity E66.9 Depression F32.9 Pulmonary embolism I26.99
[2021-02-01] MEDS: lisinopril 10 mg Tablet PO (11:11)
[2021-02-01] MEDS: ketorolac 30 mg/mL INJ IVP (11:11)
[2021-02-01] MEDS: apixaban 5 mg Tablet PO (11:11)
== END 2021-02-01 18:45 | disposition home or self-care (01) | DRG 481 ==
LOC: ER 09:58 → MEDSURG 10:57
PROVIDERS: Internal Medicine; Admitting Provider Orthopaedic Surgery; Emergency Provider Family Medicine; Visit Provider Orthopaedic Surgery
PROC: 0QH704Z Insertion of Internal Fixation Device into Left Upper Femur, Open Approach (ICD-10-PCS; CPT 27245; principal; 2021-01-30 15:30)
DX: S72.142A Displaced intertrochanteric fracture of left femur, initial encounter for closed fracture (principal); Z68.41 Body mass index [BMI] 40.0-44.9, adult; W01.0XXA Fall on same level from slipping, tripping and stumbling without subsequent striking against object, initial encounter; F32.9 Major depressive disorder, single episode, unspecified; Z86.718 Personal history of other venous thrombosis and embolism; Z86.711 Personal history of pulmonary embolism; Z91.14 Patient's other noncompliance with medication regimen; E66.9 Obesity, unspecified; Z83.2 Family history of diseases of the blood and blood-forming organs and certain disorders involving the immune mechanism; G47.30 Sleep apnea, unspecified; I10 Essential (primary) hypertension
CPT/HCPCS: 51702; 71045; 71100; 71101; 73502; 76000; 80048; 80053; 81001; 84443; 85025; 85610; 85730; 87635; 93005; 96365; 96374; 96375; 97161; 97166; 97530; 97535; 99285; C1713; J0330; J0690; J1100; J1170; J1885; J2270; J2405; J2704; J3010; J3490; J7030

== ENCOUNTER → 2021-07-18 10:49 | Outpatient (BNVA) | payer OTHER, SELFPAY | PROVIDERS: Visit Provider Orthopaedic Surgery | DX: M25.559 Pain in unspecified hip (principal); Z98.1 Arthrodesis status | CPT/HCPCS: 73502 ==

== ENCOUNTER 2021-07-18 11:39 | Emergency (ER) | payer OTHER, SELFPAY ==
[2021-07-18 12:24] VITALS: BP 155/105; PULSE 91; RESP 16; TEMP 36.8; O2SAT 96; BMI 43.7
--- NOTE | 2021-07-18 12:39 | W.ED.GENADLT ---
HPI - General Adult General: Chief complaint: General Medical Stated complaint: L LEG, POSS CLOT Time Seen by Provider: 07/18/21 12:34 History of Present Illness: HPI narrative: Patient is a 30-year-old male who comes to the ED with left leg pain and swelling. Patient says he has a history of anxiety, DVT and a PE. He is currently taking Eliquis. He says about a month and a half ago he started developing some aching pain in the left calf along with some swelling in left leg as well. He has some episodes of mild shortness of breath and mild chest tightness over the last month that he thinks is likely caused by his anxiety. He reports that he currently is feeling anxious about potentially having another blood clot and so he reports right now having some very mild shortness of breath and mild chest tightness. Denies any hemoptysis. Patient reports his PCP wanted him to come here to the ED to check for blood clot. Associated symptoms: Deny chest pain, dyspnea, headache(s), nausea, rash, palpitations or vomiting Review of Systems Const: Denies: fever(s), chills or fatigue Eyes: Denies: change in vision or eye discomfort ENMT: Denies: throat pain, odynophagia, nasal discharge or nasal congestion Card: Denies: chest pain, palpitations, edema, swelling of feet/ankles, dyspnea on exertion or orthopnea Resp: Denies: dyspnea, productive cough or non-productive cough GI: Denies: abdominal pain, nausea, vomiting, diarrhea, constipation or hematochezia : Denies: flank pain, difficulty urinating, dysuria or hematuria Musc: Reports: extremity pain (Left lower extremity) and extremity swelling (Left lower extremity); Denies: neck pain or back pain Skin/Breast: Denies: rash or new lesions Neuro: Denies: headache(s), numbness in extremities or weakness in extremities Psych: Reports: anxiety PFSH ED PFSH: Medical History Left leg DVT Obesity Pulmonary embolism Family History Other Clotting disorder Social History Smoking and tobacco status: never smoked Alcohol intake: current Alcohol intake frequency: few times a week Physical Exam Const: COMMON NORMALS: no acute distress, patient oriented x3 and alert GENERAL APPEARANCE: cooperative and comfortable NUTRITIONAL APPEARANCE: obese HENMT: COMMON NORMALS: normocephalic HEAD & SCALP: normocephalic MOUTH: Normal oral and palatal mucosa present THROAT: posterior oropharynx normal and uvula midline Neck/C-Spine: COMMON NORMALS: supple GENERAL: Yes normal visual inspection Resp: COMMON NORMALS: normal respiratory effort, No retractions, No use of accessory muscles and clear to auscultation bilaterally EFFORT & INSPECTION: Yes able to speak in complete sentences, No tachypneic, No respiratory distress and No labored AUSCULTATION: clear to auscultation bilaterally Cardio: COMMON NORMALS: regular rate, regular rhythm, S1 normal heart sound present, S2 normal heart sound present, No gallops present (Cardio), No clicks present (Cardio), No murmurs present (Cardio) and Peripheral pulses 2+ throughout RATE: regular rate RHYTHM: regular rhythm HEART SOUNDS: S1 normal heart sound present and S2 normal heart sound present PERIPHERAL PULSES: Peripheral pulses 2+ throughout GI: COMMON NORMALS: Normal to inspection, nondistended, normoactive bowel sounds present, Soft to palpation, non-tender and no masses PALPATION: Yes Soft to palpation : COMMON NORMALS: Yes no CVA tenderness BLADDER/KIDNEY EXAM: Yes no CVA tenderness Back/Pelvis: COMMON NORMALS: no CVA tenderness Extremity: COMMON NORMALS: no pedal edema GENERAL: Yes calf tenderness (Left calf tenderness) Neuro: COMMON NORMALS: patient oriented x3 and moves all extremities SENSORIUM/ORIENTATION: Yes alert Skin: GENERAL SKIN EXAM: dry skin Course Vital Signs: Vital signs: Vital Signs Temperature 98.2 F 07/18/21 12:24 Pulse Rate 89 07/18/21 13:42 Respiratory Rate 16 07/18/21 12:24 Blood Pressure 166/96 07/18/21 13:42 Pulse Oximetry 98 07/18/21 13:42 MDM - General Adult MDM Narrative: Medical decision making narrative: Patient is a 30-year-old male comes to the ED with left lower leg pain and swelling for the past month and a half. He has a history of DVTs and a PE. He is currently on Eliquis. He endorses some anxiety since leg pain started because he is worried about having another blood clot. Vitals are stable. Ultrasound venous duplex of left lower extremity showed no DVT or blood clots. Patient was given some Ativan to help with his anxiety while here in the ED. Patient was diagnosed with left leg pain and anxiety and discharged home. He was sent home with a prescription for Vistaril. He was told to follow-up with his PCP in 7 to 10 days for reevaluation. Return to ED precautions given. Patient understood and agree with plan. Imaging Data^: US Vascular: Attestation: I personally reviewed and interpreted this imaging study as follows: Radiologist's impression: Ultrasound venous duplex of left lower extremity?prelim report?no DVTs or blood clots seen. Discharge Plan Discharge Patient Disposition: Home Clinical Impression: Left leg pain, Anxiety Condition: Stable Prescriptions: New Vistaril 50 mg capsule 50 mg PO Q8H PRN (Reason: anxiety) Qty: 20 RF: 0 No Action hydrocodone-acetaminophen 5-325 mg tablet 1 - 2 tab PO Q4H PRN (Reason: Breakthrough Pain) 7 Days Qty: 60 RF: 0 Eliquis 5 mg Tablet 5 mg PO BID@0900,2100 Qty: 60 RF: 0 lisinopril 10 mg Tablet 10 mg PO DAILY Qty: 30 RF: 0 Discharge Orders: Discharge ED (Routine); Ordered 07/18/21 Ordered By: Deni Malcolm Discharge Diet: Regular Discharge Activity: Resume usual activity Activity Restrictions/Additional Instructions: Follow-up with medical provider as directed in 7-10 days for reevaluation. Continue taking home medications as prescribed. Rest ice and elevate left leg. Take [id number] Tylenol for pain. Return to the ER or your medical provider if condition worsens. Please read and understand discharge instructions. Thank you for choosing [facility] for your healthcare needs today. Please realize this is an emergency room and that we are providing you with a medical screening exam and this may not be complete and all inclusive of all the testing and or work up that you may need to determine your ailment or severity of your illness. It is very important that you follow up as instructed or that you return to the Emergency Department should you have concerns or if your condition changes or worsens in any way. Coding Level of Care Code ED It Disaster Recovery Manager for Danilo Chicas Exam Comprehensive
--- NOTE | 2021-07-18 12:47 | USCV_ITS ---
Gerhard Fleming Age: 30 Gender: M : 1990 Exam Date: 07/18/2021 13:12 Ordering Phys: Deni Malcolm Technologist: Exam Location: [facility] [place]: HX OF DVT LT LEG SWELLING PROCEDURES: Venous duplex imaging was performed in only the left lower extremity. The following venous structures were evaluated: common femoral vein, profunda vein, proximal portion of the greater saphenous vein, superficial femoral vein, and the popliteal vein. In addition, the posterior tibial and peroneal trunk were evaluated. On the left side, the common femoral, superficial femoral, profunda femoral, popliteal, posterior tibial, greater saphenous veins, and the peroneal trunk were identified and interrogated in the standard fashion. FINDINGS: Normal 2-D Doppler and augmentation and compressibility throughout the lower extremity venous structures. Additional imaging through the proximal calf veins also reveals no thrombus. Limited evaluation of the greater saphenous vein is patent with no thrombus. CONCLUSIONS No DVT left lower extremity. Dr. Nikki Hodges DO (Electronically Signed) Final Date: 18 July 2021 15:16 S
[2021-07-18] MEDS: LORazepam 1 mg Tablet PO (13:16)
[2021-07-18 13:42] VITALS: BP 166/96; PULSE 89; O2SAT 98
== END 2021-07-18 14:20 | disposition home or self-care (01) ==
PROVIDERS: Emergency Provider Physician Assistant
DX: M79.605 Pain in left leg (principal); F41.9 Anxiety disorder, unspecified; Z79.01 Long term (current) use of anticoagulants; Z86.711 Personal history of pulmonary embolism; Z86.718 Personal history of other venous thrombosis and embolism
CPT/HCPCS: 93971; 99283